=== PATIENT | female | born 1995 | race Caucasian/White ===

== ENCOUNTER 2021-02-28 19:05 | Emergency (ER) | payer OTHER ==
[~2021-02-28] VITALS: Ht 160 cm; Wt 56.7 kg
[2021-02-28] MEDS ORDERED: FLUORESCEIN SODIUM OPHTH 1 EA STRIP ONE ×3 (19:34→21:56)
--- NOTE | 2021-02-28 20:00 | NUR ---
PT BIB FRIEND C/O L EYE 10/10 PAIN AND BLURRY VISION AFTER GETTING SAP IN IT WHILE IN THE [place]. PLACED ON MONITOR MD WAS AT BEDSIDE FOR EVAL.
[2021-02-28] MEDS ORDERED: HYDROCODONE/APAP 10/325MG TABLET ONE (20:22)
--- NOTE | 2021-02-28 20:25 | NUR ---
JOSEPH LENS INITIATED
[2021-02-28] MEDS ORDERED: HYDROCODONE/APAP 10/325MG TABLET PO ONE (20:30)
--- NOTE | 2021-02-28 22:24 | NUR ---
Patient does not wish to proceed with medical care recommended by Dr. Chisholm. Patient given information related to possible complications, up to and including , which could occur as a result of leaving the hospital at this time. Patient verbalizes understanding of risks involved due to leaving against medical advice. Patient has signed AMA form.
[2021-02-28 22:27] VITALS: BP 127/86
[2021-02-28] MEDS ORDERED: ERYTHROMYCIN BASE OPHTH 3.5 GM TUBE OP ONE (22:30)
== END 2021-02-28 22:27 | disposition left against medical advice (07) ==
LOC: ER 19:13
DX: S05.02XA Injury of conjunctiva and corneal abrasion without foreign body, left eye, initial encounter (principal); H10.212 Acute toxic conjunctivitis, left eye; X58.XXXA Exposure to other specified factors, initial encounter; Y93.89 Activity, other specified; Y92.89 Other specified places as the place of occurrence of the external cause; Y99.8 Other external cause status
CPT/HCPCS: 99283; A6410; J7030